=== PATIENT | male | born 1960 | race African-American/Black ===

== ENCOUNTER 2020-12-23 20:57 | Inpatient (IN) | payer MEDICARE, MEDICAID ==
[~2020-12-23] VITALS: Ht 157.5 cm; Wt 68.0 kg
[2020-12-23] MEDS ORDERED: METHYLPREDNISOLONE SOD SUCC 125 MG/2 ML VIAL IV STA (21:46)
[2020-12-23] MEDS ORDERED: IPRATROPIUM BROMIDE (0.02%) 0.5MG/2.5ML NEB HHN STA (21:46)
[2020-12-23] MEDS ORDERED: ALBUTEROL (0.083%) 2.5MG/3ML NEB HHN STA (21:46)
[2020-12-23 22:21] LABS: BASOPHILS % 0.9 % (0.0-2.0); EOSINOPHILS % 0.2 % (0.0-5.0); HEMATOCRIT. 41.2 % (42.0-52.0); HEMOGLOBIN. 13.5 g/dL (14.0-18.0); LYMPHOCYTES % 13.6 % (20.0-50.0); MEAN CORPUSCULAR VOLUME 88.4 fL (80.0-94.0); MEAN PLATELET VOLUME 7.6 fl (7.4-10.4); NEUTROPHILS % 77.3 % (40.0-76.0); PLATELET 198 x1000/uL (130-400); RED BLOOD CELL COUNT 4.66 mill/uL (4.7-6.1); RED CELL DISTRIBUTION WIDTH 14.9 % (11.6-14.6)
[2020-12-23 22:24] LABS: CHLORIDE 99 mEq/L (98-107)
[2020-12-24] MEDS ORDERED: FUROSEMIDE 40MG/4ML VIAL IVP ONE (00:30)
[2020-12-24] MEDS ORDERED: DIPHENHYDRAMINE 50MG/ML VIAL IV PRN (08:45)
[2020-12-24] MEDS ORDERED: CLONIDINE 0.1MG TABLET PO PRN (08:45)
[2020-12-24] MEDS ORDERED: AZITHROMYCIN 500 MG in DEXT 5% WATER 250 ML IV SCH (08:45)
[2020-12-24] MEDS ORDERED: ACETAMINOPHEN 325MG TABLET PO PRN (08:45)
[2020-12-24] MEDS ORDERED: CEFTRIAXONE 1 G PREMIX 50 ML IV ONE (08:45)
[2020-12-24] MEDS ORDERED: ONDANSETRON HCL 4MG/2ML INJ IV PRN (08:45)
[2020-12-24] MEDS: ENOXAPARIN 40MG/0.4ML SYR SUBCUT SCH (09:00)
[2020-12-24] MEDS: FUROSEMIDE 40MG/4ML VIAL IV SCH ×2 (09:00→17:00)
[2020-12-24 11:17] VITALS: BP 171/69
[2020-12-24 12:00] VITALS: BP 157/71
[2020-12-24] MEDS ORDERED: OMEP20CA14 MT (12:01)
[2020-12-24] MEDS ORDERED: CYCL10TA7 MT (12:01)
[2020-12-24] MEDS ORDERED: TACR1CAP2 MT (12:01)
[2020-12-24] MEDS ORDERED: PRED-276 MT (12:01)
[2020-12-24] MEDS ORDERED: GABA-533 MT (12:01)
[2020-12-24] MEDS ORDERED: CINA90TA MT (12:01)
[2020-12-24] MEDS ORDERED: DILT60TA41 GT (12:01)
[2020-12-24] MEDS ORDERED: MYCO500T MT (12:01)
[2020-12-24] MEDS ORDERED: DILT180T11 MT (12:03)
[2020-12-24] MEDS ORDERED: ASPI-1497 MT (12:04)
[2020-12-24] MEDS ORDERED: DILTIAZEM HCL 180MG CAPSULE CD 24HR PO SCH (12:15)
[2020-12-24] MEDS: CYCLOBENZAPRINE 10MG TABLET PO SCH ×2 (13:12→17:02)
[2020-12-24] MEDS: GABAPENTIN 400MG CAPSULE PO SCH ×2 (13:12→17:02)
[2020-12-24] MEDS: ASPIRIN 81MG EC TABLET PO SCH (13:12)
[2020-12-24] MEDS: PREDNISONE 5MG TABLET PO SCH (13:12)
[2020-12-24] MEDS: LOSARTAN POTASSIUM 25 MG TABLET PO SCH (13:23)
[2020-12-24 14:10] LABS: BG BASE EXCESS 0.2 mmol/L (-2.0-2.0); BG CARBOXYHEMOGLOBIN 0.4 % (0.5-1.5); BG DEOXYHEMOGLOBIN 2.1 % (0.0-5.0); BG FRACTION INSPIRED OXYGEN 100; BG HCO3 ACT 24.8 mmol/L (22.0-26.0); BG METHEMOGLOBIN 0.3 % (0.0-1.5); BG OXYGEN SATURATION 97.9 % (92.0-98.5); BG OXYHEMOGLOBIN 97.2 % (94.0-97.0); BG PO2 120.9 mmHg (75.0-100.0); BG SAMPLE SITE LEFT RADIAL; BG TOTAL HEMOGLOBIN 14.8 g/dL (12.0-18.0); BG VENT MODE MASK - NRB
[2020-12-24] MEDS: CINACALCET HCL 90MG TABLET PO SCH (14:32)
[2020-12-24 16:00] VITALS: BP 186/84
[2020-12-24] MEDS: TACROLIMUS 1MG CAPSULE PO SCH (17:02)
[2020-12-24] MEDS: MYCOPHENOLATE MOFETIL 500MG TABLET PO SCH (17:02)
[2020-12-24 20:00] VITALS: BP 163/84
[2020-12-24] MEDS ORDERED: POTASSIUM CHLORIDE INJ 40 MEQ in DEXT 5% WATER 500 ML IV NR (20:00)
[2020-12-24] MEDS: AMLODIPINE 5MG TABLET PO SCH (21:57)
[2020-12-25] VITALS (7 sets, daily range): BP systolic 118–180; BP diastolic 72–92
[2020-12-25 05:19] LABS: HEMATOCRIT. 38.4 % (42.0-52.0); HEMOGLOBIN. 12.5 g/dL (14.0-18.0); MEAN CORPUSCULAR HEMOGLOBIN 29.1 pg (28.0-32.0); MEAN PLATELET VOLUME 7.9 fl (7.4-10.4); PLATELET 141 x1000/uL (130-400); RED BLOOD CELL COUNT 4.32 mill/uL (4.7-6.1); RED CELL DISTRIBUTION WIDTH 15.1 % (11.6-14.6)
[2020-12-25 05:40] LABS: CHLORIDE 101 mEq/L (98-107)
[2020-12-25 05:48] LABS: LDL CHOLESTEROL 52 mg/dL (5-100)
[2020-12-25 05:49] LABS: HDL CHOLESTEROL 73 mg/dL (40-59)
[2020-12-25] MEDS: ENOXAPARIN 40MG/0.4ML SYR SUBCUT SCH (08:51)
[2020-12-25] MEDS: PREDNISONE 5MG TABLET PO SCH (08:51)
[2020-12-25] MEDS: FUROSEMIDE 40MG/4ML VIAL IV SCH ×2 (08:51→16:38)
[2020-12-25] MEDS: AMLODIPINE 5MG TABLET PO SCH (08:55)
[2020-12-25] MEDS: TACROLIMUS 1MG CAPSULE PO SCH ×2 (08:59→16:39)
[2020-12-25] MEDS: CYCLOBENZAPRINE 10MG TABLET PO SCH ×3 (08:59→16:39)
[2020-12-25] MEDS: GABAPENTIN 400MG CAPSULE PO SCH ×3 (08:59→16:39)
[2020-12-25] MEDS: LOSARTAN POTASSIUM 25 MG TABLET PO SCH (08:59)
[2020-12-25] MEDS: ASPIRIN 81MG EC TABLET PO SCH (08:59)
[2020-12-25] MEDS: OMEPRAZOLE 20MG CAPSULE EXTENDED RELEASE PO SCH (08:59)
[2020-12-25] MEDS: MYCOPHENOLATE MOFETIL 500MG TABLET PO SCH ×2 (08:59→16:39)
[2020-12-25] MEDS: CEFTRIAXONE 1,000 MG in DEXTROSE 5% WATER 50 ML IV SCH (11:02)
[2020-12-25] MEDS: CINACALCET HCL 90MG TABLET PO SCH (11:02)
[2020-12-25] MEDS: AZITHROMYCIN 500MG in DEXTROSE 5% WATER 250ML IV SCH (11:03)
[2020-12-25 14:20] LABS: PLATELET ESTIMATE NORMAL
[2020-12-25] MEDS: DILTIAZEM HCL 120MG CAPSULE CD 24HR PO SCH (15:37)
[2020-12-26 04:00] VITALS: BP 109/89
[2020-12-26] MEDS: OMEPRAZOLE 20MG CAPSULE EXTENDED RELEASE PO SCH (06:27)
[2020-12-26 08:00] VITALS: BP 159/94
[2020-12-26] MEDS ORDERED: LOSARTAN POTASSIUM 50 MG TABLET PO SCH (09:00)
[2020-12-26] MEDS: FUROSEMIDE 40MG/4ML VIAL IV SCH (09:34)
[2020-12-26] MEDS: CYCLOBENZAPRINE 10MG TABLET PO SCH ×2 (09:35→13:12)
[2020-12-26] MEDS: MYCOPHENOLATE MOFETIL 500MG TABLET PO SCH (09:35)
[2020-12-26] MEDS: TACROLIMUS 1MG CAPSULE PO SCH (09:35)
[2020-12-26] MEDS: DILTIAZEM HCL 120MG CAPSULE CD 24HR PO SCH (09:35)
[2020-12-26] MEDS: GABAPENTIN 400MG CAPSULE PO SCH ×2 (09:35→13:12)
[2020-12-26] MEDS: ASPIRIN 81MG EC TABLET PO SCH (09:36)
[2020-12-26] MEDS: CINACALCET HCL 90MG TABLET PO SCH (09:36)
[2020-12-26] MEDS: ENOXAPARIN 40MG/0.4ML SYR SUBCUT SCH (09:37)
[2020-12-26] MEDS: PREDNISONE 5MG TABLET PO SCH (09:37)
[2020-12-26] MEDS: AZITHROMYCIN 500MG in DEXTROSE 5% WATER 250ML IV SCH (09:38)
[2020-12-26] MEDS: CEFTRIAXONE 1,000 MG in DEXTROSE 5% WATER 50 ML IV SCH (09:38)
[2020-12-26] MEDS ORDERED: DILTIAZEM HCL 180MG CAPSULE CD 24HR PO SCH (11:15)
[2020-12-26 12:00] VITALS: BP 120/87
[2020-12-26] MEDS ORDERED: AZIT500T8 MT (14:16)
[2020-12-26] MEDS ORDERED: LOSA100T3 PO (14:16)
[2020-12-26] MEDS ORDERED: DILT180C66 PO (14:16)
[2020-12-26 16:00] VITALS: BP 159/79
[2020-12-26 16:42] VITALS: BP 159/79
[2020-12-27] MEDS ORDERED: LOSARTAN POTASSIUM 100 MG TABLET PO SCH (09:00)
[2020-12-27] MEDS ORDERED: DILTIAZEM HCL 180MG CAPSULE CD 24HR PO SCH (09:00)
== END 2020-12-26 17:33 | disposition home or self-care (01) | DRG 871 ==
LOC: ER 20:57 → 7WST 12-24 00:23 → ENRESERV 12-24 09:21 → 6WST 12-25 06:19
PROVIDERS: ADMIT Internal Medicine; ATTEND Internal Medicine
DX: A41.9 Sepsis, unspecified organism (principal); J96.01 Acute respiratory failure with hypoxia; J18.9 Pneumonia, unspecified organism; I50.33 Acute on chronic diastolic (congestive) heart failure; N18.6 End stage renal disease; D84.9 Immunodeficiency, unspecified; J44.0 Chronic obstructive pulmonary disease with (acute) lower respiratory infection; Z94.0 Kidney transplant status; I42.2 Other hypertrophic cardiomyopathy; J44.1 Chronic obstructive pulmonary disease with (acute) exacerbation; I13.2 Hypertensive heart and chronic kidney disease with heart failure and with stage 5 chronic kidney disease, or end stage renal disease; I43 Cardiomyopathy in diseases classified elsewhere; E78.5 Hyperlipidemia, unspecified; F17.200 Nicotine dependence, unspecified, uncomplicated; I73.9 Peripheral vascular disease, unspecified; Z20.822 Contact with and (suspected) exposure to COVID-19; I27.20 Pulmonary hypertension, unspecified; J45.909 Unspecified asthma, uncomplicated; E87.70 Fluid overload, unspecified; I08.1 Rheumatic disorders of both mitral and tricuspid valves; T38.0X5A Adverse effect of glucocorticoids and synthetic analogues, initial encounter; Z95.820 Peripheral vascular angioplasty status with implants and grafts; Z99.2 Dependence on renal dialysis
CPT/HCPCS: 36415; 36600; 71045; 80053; 80061; 82375; 82805; 83880; 84145; 84443; 84484; 85025; 93005; 93306; 94640; 99291; J0456; J0696; J1650; J1940; J2930; J3480; J7040; J7060; J7507; J7512; J7517; U0003

== ENCOUNTER 2022-11-03 10:00 | Emergency (ER) | payer MEDICARE, MEDICAID ==
[~2022-11-03] VITALS: Ht 167.6 cm; Wt 89.0 kg
[~2022-11-03 10:00] MED LIST: ASPI-1497 MT; AZIT500T8 MT; CINA90TA MT; CYCL10TA21 MT; DILT180C66 PO; DILT180T11 MT; GABA-533 MT; LOSA100T3 PO; MYCO500T MT; OMEP20CA14 MT; PRED-276 MT; TACR1CAP2 MT
[2022-11-03 10:10] VITALS: BP 138/86
[2022-11-03 13:25] LABS: BASOPHILS % 0.5 % (0.0-2.0); EOSINOPHILS % 0.4 % (0.0-5.0); HEMATOCRIT. 33.3 % (42.0-52.0); HEMOGLOBIN. 10.9 g/dL (14.0-18.0); LYMPHOCYTES % 25.2 % (20.0-50.0); MEAN CORPUSCULAR HEMOGLOBIN 29.3 pg (28.0-32.0); MEAN CORPUSCULAR VOLUME 89.1 fL (80.0-94.0); MEAN PLATELET VOLUME 6.9 fl (7.4-10.4); MONOCYTES % 8.3 % (2.0-8.0); NEUTROPHILS % 65.6 % (40.0-76.0); PLATELET 194 x1000/uL (130-400); RED BLOOD CELL COUNT 3.74 mill/uL (4.7-6.1)
[2022-11-03 13:32] LABS: CHLORIDE 109 mEq/L (98-107)
== END 2022-11-04 00:27 | disposition left against medical advice (07) ==
LOC: ER 10:00
DX: R06.02 Shortness of breath (principal)
CPT/HCPCS: 36415; 71045; 80053; 83880; 85025; 99284

== ENCOUNTER 2023-10-29 12:34 | Emergency (ER) | payer MEDICARE, MEDICAID ==
[~2023-10-29] VITALS: Ht 172.7 cm; Wt 72.0 kg
[~2023-10-29 12:34] MED LIST changes: -GABA-533 MT; +GABA-534 MT; +LOSA-415 PO; -LOSA100T3 PO; -PRED-276 MT; +PRED-855 MT
[2023-10-29] MEDS ORDERED: PREDNISONE 20MG TABLET PO STA (12:50)
[2023-10-29] MEDS ORDERED: IPRATROPIUM BROMIDE (0.02%) 0.5MG/2.5ML NEB HHN STA (12:50)
[2023-10-29 13:15] VITALS: PULSE 72; RESP 24; O2SAT 94
[2023-10-29] MEDS: ALBUTEROL (0.083%) 2.5MG/3ML NEB HHN SCH ×3 (13:30→14:00)
[2023-10-29 13:55] VITALS: PULSE 80; RESP 24; O2SAT 94; O2SAT 98
[2023-10-29] MEDS ORDERED: P50 MT (14:59)
[2023-10-29 15:17] VITALS: BP 173/89; PULSE 93; RESP 17; TEMP 99.1
== END 2023-10-29 15:19 | disposition home or self-care (01) ==
LOC: ER 12:34
DX: J44.1 Chronic obstructive pulmonary disease with (acute) exacerbation (principal); B34.9 Viral infection, unspecified; I11.0 Hypertensive heart disease with heart failure; I50.9 Heart failure, unspecified; E78.00 Pure hypercholesterolemia, unspecified; Z79.82 Long term (current) use of aspirin; Z79.899 Other long term (current) drug therapy
CPT/HCPCS: 99284; 71045; 94640; J7512

== ENCOUNTER 2023-12-01 10:54 | Emergency (ER) | payer MEDICARE, MEDICAID ==
[~2023-12-01] VITALS: Ht 170.2 cm; Wt 91.0 kg
[~2023-12-01 10:54] MED LIST changes: +P50 MT
[2023-12-01 11:09] VITALS: BP 124/74; PULSE 80; RESP 16; TEMP 98; O2SAT 97
[2023-12-01 11:31] LABS: BASOPHILS % 1.3 % (0.0-2.0); EOSINOPHILS % 0.2 % (0.0-5.0); HEMATOCRIT. 31.6 % (42.0-52.0); HEMOGLOBIN. 10.4 g/dL (14.0-18.0); LYMPHOCYTES % 8.1 % (20.0-50.0); MEAN CORPUSCULAR HEMOGLOBIN 29.4 pg (28.0-32.0); MEAN CORPUSCULAR HGB CONC 33.1 g/dL (31.0-37.0); MEAN CORPUSCULAR VOLUME 88.8 fL (80.0-94.0); MEAN PLATELET VOLUME 6.9 fl (7.4-10.4); MONOCYTES % 7.2 % (2.0-8.0); NEUTROPHILS % 83.2 % (40.0-76.0); PLATELET 222 x1000/uL (130-400); RED BLOOD CELL COUNT 3.55 mill/uL (4.7-6.1); WHITE BLOOD COUNT 6.6 x1000/uL (4.5-11.0)
[2023-12-01 11:42] LABS: CALCIUM 9.8 mg/dL (8.7-10.4); CARBON DIOXIDE 22 mEq/L (21-32); CHLORIDE 109 mEq/L (98-107); POTASSIUM 4.6 mEq/L (3.5-5.1); SODIUM 138 mEq/L (136-145)
[2023-12-01 11:45] LABS: ALANINE AMINOTRANSFERASE < 7 IU/L (10-49); ALBUMIN 4.1 g/dL (3.2-4.8); ASPARTATE AMINOTRANSFERASE 15 IU/L (<34); BILIRUBIN TOTAL 0.4 mg/dL (0.1-1.0); CREATININE 1.2 mg/dL (0.6-1.3); GLUCOSE 108 mg/dL (70-105); PROTEIN TOTAL 7.2 g/dL (6.0-8.3); UREA NITROGEN BLOOD 27 mg/dL (9-23)
[2023-12-01 12:07] LABS: TROPONIN I HIGH SENSITIVITY 33 ng/L (3.0-53)
== END 2023-12-01 17:46 | disposition left against medical advice (07) ==
LOC: ER 10:54
DX: R07.89 Other chest pain (principal); Z53.21 Procedure and treatment not carried out due to patient leaving prior to being seen by health care provider
CPT/HCPCS: 36415; 71045; 80053; 84484; 85025; 93005; 99281

== ENCOUNTER 2025-03-06 19:13 | Emergency (ER) | payer MEDICARE, MEDICAID ==
[~2025-03-06] VITALS: Ht 157.5 cm; Wt 73.0 kg
[2025-03-06 19:14] VITALS: O2SAT 98
[2025-03-06 19:42] VITALS: BP 155/47; PULSE 86; RESP 20; TEMP 36.8; O2SAT 100
[2025-03-06] MEDS ORDERED: IBUP-2029 MT (21:29)
[2025-03-06] MEDS ORDERED: CYCL10TA21 MT (21:29)
== END 2025-03-06 21:50 | disposition home or self-care (01) ==
LOC: ER 19:13
DX: S20.212A Contusion of left front wall of thorax, initial encounter (principal); J45.909 Unspecified asthma, uncomplicated; I11.0 Hypertensive heart disease with heart failure; I50.9 Heart failure, unspecified; E78.00 Pure hypercholesterolemia, unspecified; Z79.624 Long term (current) use of inhibitors of nucleotide synthesis; Z94.0 Kidney transplant status; Z86.718 Personal history of other venous thrombosis and embolism; Z79.899 Other long term (current) drug therapy; Z79.82 Long term (current) use of aspirin; Z98.890 Other specified postprocedural states; Z79.621 Long term (current) use of calcineurin inhibitor; W19.XXXA Unspecified fall, initial encounter; Y93.89 Activity, other specified; Y92.89 Other specified places as the place of occurrence of the external cause; Y99.8 Other external cause status
CPT/HCPCS: 71101; 99283

== ENCOUNTER → 2025-07-25 | Outpatient (CLI) | payer MEDICARE, MEDICAID ==
[~2025-07-25] MED LIST changes: +IBUP-1455 MT; +IOHEXOL-350 100 ML BOTTLE ONE
== END | disposition home or self-care (01) ==
LOC: CT 08:15
PROVIDERS: ATTEND Internal Medicine Nephrology
DX: R06.02 Shortness of breath (principal); I77.810 Thoracic aortic ectasia; I70.0 Atherosclerosis of aorta; N26.1 Atrophy of kidney (terminal); N28.1 Cyst of kidney, acquired
CPT/HCPCS: 71275; Q9967

== ENCOUNTER → 2025-10-11 | Outpatient (CLI) | payer MEDICARE, MEDICAID ==
[~2025-10-11] MED LIST changes: -IOHEXOL-350 100 ML BOTTLE ONE
== END | disposition home or self-care (01) ==
LOC: MRI 09:34
PROVIDERS: ATTEND Internal Medicine Nephrology
DX: M54.2 Cervicalgia (principal); Z04.3 Encounter for examination and observation following other accident
CPT/HCPCS: 72141